=== PATIENT | male | born 1990 | race Caucasian/White ===

== ENCOUNTER 2025-03-12 11:49 | Emergency (ER) | payer OTHER ==
[2025-03-12] MEDS ORDERED: Ibuprofen 800 MG TAB ONE (12:29)
== END 2025-03-12 13:37 | disposition home or self-care (01) ==
LOC: CSHERS 11:49
DX: S79.922A Unspecified injury of left thigh, initial encounter (principal); X58.XXXA Exposure to other specified factors, initial encounter; Y93.02 Activity, running
CPT/HCPCS: 99283